=== PATIENT | male | born 1955 | race Caucasian/White ===

== ENCOUNTER → 2020-11-17 | Outpatient (CLI) | payer OTHER, MEDICARE ==
--- NOTE | 2020-11-17 11:05 | KCIC ---
MRI of the lumbar spine without contrast 11/17/2020 CLINICAL HISTORY: Low back pain. Left hip and leg pain. TECHNIQUE: Unenhanced T1-weighted and T2-weighted sagittal and axial and inversion recovery sagittal images of the lumbar spine were obtained. FINDINGS: Very mild S-shaped curvature of the thoracolumbar spine is seen. Degenerative signal change s are seen involving all of the disks of the lumbar spine. Degenerative signal changes are seen withi n the marrow surrounding these discs. The conus medullaris is normal morphology, position, and signal characteristics. At the L1-2 disc space there is a mild to moderate generalized disc bulge. This is eccentric to the l eft. Degenerative changes are seen involving the facet joints bilaterally. There are small facet join t effusions bilaterally. There is mild ligamentum flavum hypertrophy bilaterally. These findings when combined do not result in significant central spinal canal or neural foraminal stenosis. At the L2-3 disc space there is a mild to moderate generalized disc bulge. Superimposed on this disc bulge is a left paracentral/lateral focal disc protrusion. This measures 5 mm in AP diameter. Degener ative changes are seen involving the facet joints bilaterally. There is moderate ligamentum flavum hy pertrophy bilaterally. There are small facet joint effusions bilaterally. There is prominence of the posterior epidural fat. These findings when combined result in mild central spinal canal stenosis. No neural foraminal stenosis is seen. At the L3-4 disc space there is a moderate generalized disc bulge. This is eccentric to the left. Sup erimposed on this disc bulge is a left paracentral focal disc protrusion. This measures 4 mm in AP di ameter. Degenerative changes are seen involving the facet joints bilaterally. There is moderate ligam entum flavum hypertrophy bilaterally. There are small facet joint effusions bilaterally. There is pro minence of the posterior epidural fat. These findings when combined result in mild to moderate centra l spinal canal stenosis. Mild left neural foraminal stenosis is seen. The right neural foramen is pat ent. At the L4-5 disc space there is a mild to moderate generalized disc bulge. Degenerative changes are s een involving the facet joints, left greater than right. There is mild to moderate ligamentum flavum hypertrophy, left greater than right. These findings when combined result in mild to moderate left gr eater than right central spinal canal stenosis. Mild left neural foraminal stenosis is seen. The righ t neural foramen is patent. At the L5-S1 disc space there is a mild generalized disc bulge. This is eccentric to the right. Degen erative changes are seen involving the facet joints bilaterally. These findings do not result in sign ificant central spinal canal or neural foraminal stenosis. IMPRESSION: The changes of degenerative disc disease are seen throughout the lumbar spine. These find ings result in mild central spinal canal stenosis at L2-3, mild to moderate central spinal canal sten osis at L3-4 and mild to moderate left greater than right central spinal canal stenosis at L3-4. Mild left neural foraminal stenosis is seen at L3-4 and L4-5. Electronically signed by: George Gu MD (11/17/2020 11:02 AM) [id number]
== END ==
LOC: KCIC MRI 07:58
PROVIDERS: ATTEND Nurse Practitioner Family
DX: M51.36 Other intervertebral disc degeneration, lumbar region (principal); M48.061 Spinal stenosis, lumbar region without neurogenic claudication
CPT/HCPCS: 72148